=== PATIENT | female | born 1995 | race Caucasian/White ===

== ENCOUNTER 2017-09-25 08:15 | Emergency (ER) | payer MEDICAID ==
[~2017-09-25] VITALS: Ht 170.2 cm; Wt 68.0 kg
[2017-09-25] MEDS ORDERED: KETOROLAC 30 MG/1 ML ONE (11:08)
[2017-09-25] MEDS: KETOROLAC 30 MG/1 ML IM ONE ×2 (11:20→11:35)
[2017-09-25 11:40] VITALS: BP 122/69
== END 2017-09-25 11:43 | disposition home or self-care (01) ==
LOC: ED 10:26
DX: J98.01 Acute bronchospasm (principal); M94.0 Chondrocostal junction syndrome [Tietze]; F17.210 Nicotine dependence, cigarettes, uncomplicated
CPT/HCPCS: 71020; 93005; 96372; 99284; J1885

== ENCOUNTER 2020-12-06 11:45 | Emergency (ER) | payer MEDICAID ==
[~2020-12-06] VITALS: Ht 170.2 cm; Wt 63.0 kg
--- NOTE | 2020-12-06 12:21 | NUR ---
pt to rm from lobby
--- NOTE | 2020-12-06 12:34 | NUR ---
BHUPENDRA Chavez at bedside. Pt ambulated to restroom.
[2020-12-06 13:19] LABS: BASOPHILS % (AUTO) 0 % (0-1); EOSINOPHILS % (AUTO) 1 % (1-7); LYMPHOCYTES % (AUTO) 29 % (22-44); MEAN CORPUSCULAR HEMOGLOBIN 32.7 pg (27.0-34.8); MEAN CORPUSCULAR HGB CONC 34.5 g/dL (32.4-35.8); MEAN PLATELET VOLUME 6.5 fL (7.4-10.4); MONOCYTES % (AUTO) 6 % (2-9); NEUTROPHILS % (AUTO) 64 % (42-75); PLATELET COUNT 306 x10^3/uL (130-400); RED BLOOD COUNT 4.35 x10^6/uL (3.82-5.3); RED CELL DISTRIBUTION WIDTH 13.3 % (9.6-15.2)
[2020-12-06 13:22] LABS: MICROSCOPIC INDICATED
[2020-12-06 13:26] LABS: MD NO
--- NOTE | 2020-12-06 13:30 | NUR ---
Pt to US
[2020-12-06 14:09] VITALS: BP 127/78
--- NOTE | 2020-12-06 14:13 | NUR ---
PT resting in bed, call light in reach.
--- NOTE | 2020-12-06 14:29 | NUR ---
ERMD at bedside to POC
--- NOTE | 2020-12-06 15:05 | NUR ---
Pt discharged home with significant other. Discharge instructions reviewed and signed.
== END 2020-12-06 15:17 | disposition home or self-care (01) ==
LOC: ED 13:23
DX: O20.0 Threatened abortion (principal); R10.9 Unspecified abdominal pain; O99.331 Smoking (tobacco) complicating pregnancy, first trimester; F17.200 Nicotine dependence, unspecified, uncomplicated; Z3A.01 Less than 8 weeks gestation of pregnancy
CPT/HCPCS: 36415; 76801; 81001; 84702; 85025; 86901; 99284

== ENCOUNTER 2020-12-08 09:03 | Emergency (ER) | payer MEDICAID ==
[~2020-12-08] VITALS: Ht 170.2 cm; Wt 63.8 kg
[2020-12-08 09:07] VITALS: BP 118/89
== END 2020-12-08 11:10 | disposition home or self-care (01) ==
LOC: ED 10:25
DX: O20.0 Threatened abortion (principal); Z3A.01 Less than 8 weeks gestation of pregnancy
CPT/HCPCS: 36415; 84702; 99283

== ENCOUNTER 2020-12-16 18:11 | Emergency (ER) | payer MEDICAID ==
[~2020-12-16] VITALS: Ht 170.2 cm; Wt 63.7 kg
--- NOTE | 2020-12-16 18:51 | NUR ---
REPORT GIVEN TO OG
--- NOTE | 2020-12-16 18:59 | NUR ---
report recieved from sean clifton. pt resting in [facility], awaiting ultrasound
--- NOTE | 2020-12-16 20:06 | NUR ---
ultrasound phoned and on the way now
--- NOTE | 2020-12-16 20:45 | NUR ---
ultrasound complete, awaiting results
--- NOTE | 2020-12-16 22:23 | NUR ---
urine sent, awaiting lab draw, no other needs at this time
[2020-12-16 22:29] LABS: MICROSCOPIC INDICATED
[2020-12-16 22:32] LABS: BASOPHILS % (AUTO) 1 % (0-1); EOSINOPHILS % (AUTO) 3 % (1-7); LYMPHOCYTES % (AUTO) 37 % (22-44); MEAN CORPUSCULAR HEMOGLOBIN 32.6 pg (27.0-34.8); MEAN CORPUSCULAR HGB CONC 34.5 g/dL (32.4-35.8); MEAN PLATELET VOLUME 6.6 fL (7.4-10.4); MONOCYTES % (AUTO) 5 % (2-9); NEUTROPHILS % (AUTO) 55 % (42-75); PLATELET COUNT 291 x10^3/uL (130-400); RED BLOOD COUNT 4.12 x10^6/uL (3.82-5.3); RED CELL DISTRIBUTION WIDTH 13.1 % (9.6-15.2)
[2020-12-16 22:39] LABS: MD NO
[2020-12-16 22:45] LABS: ALBUMIN 3.8 g/dL (3.4-5.0); ANION GAP 8 mmol/L (5-15); CALCIUM 8.4 mg/dL (8.5-10.1); CHLORIDE 110 mmol/L (98-107); CREATININE 0.71 mg/dL (0.55-1.02)
[2020-12-16 23:23] VITALS: BP 111/65
[2020-12-16] MEDS ORDERED: BUPIVACAINE/PF 0.5% ONE (23:27)
[2020-12-16] MEDS ORDERED: EPINEPHRINE 1 MG/ML, 1ML ONE (23:28)
[2020-12-16] MEDS ORDERED: BUPIVACAINE/PF-EPI 0.5% 1:200K IM ONE (23:31)
[2020-12-16] MEDS ORDERED: FENTANYL PF 250 MCG/5ML ONE (23:36)
[2020-12-16] MEDS ORDERED: MIDAZOLAM 1 MG/ML, 2ML ONE (23:36)
[2020-12-16] MEDS ORDERED: CEFAZOLIN 1,000 MG ONE (23:59)
[2020-12-16] MEDS ORDERED: NEOSTIGMINE 1 MG/ML, 10ML ONE (23:59)
[2020-12-16] MEDS ORDERED: DEXAMETHASONE 4 MG/ML, 1ML ONE (23:59)
[2020-12-16] MEDS ORDERED: PROPOFOL 10 MG/ML, 20ML ONE (23:59)
[2020-12-16] MEDS ORDERED: ONDANSETRON 2MG/ML, 2ML ONE (23:59)
[2020-12-16] MEDS ORDERED: KETOROLAC 30 MG/1 ML ONE (23:59)
[2020-12-16] MEDS ORDERED: ROCURONIUM 10 MG/ML,10ML ONE (23:59)
[2020-12-16] MEDS ORDERED: GLYCOPYRROLATE 0.2MG/1ML, 5ML ONE (23:59)
[2020-12-16] MEDS ORDERED: SUCCINYLCHOLINE 20 MG/ML, 10ML ONE (23:59)
[2020-12-17] MEDS ORDERED: PROMETHAZINE 25 MG/ML, 1ML IVPush PRN
[2020-12-17] MEDS ORDERED: ACETAMINOPHEN 325 MG TABLET PO PRN
[2020-12-17] MEDS ORDERED: MEPERIDINE/PF 25MG/0.5ML IVPush PRN
[2020-12-17] MEDS ORDERED: OXYcodone 5 MG/5 ML ORAL.SOL UDC PO PRN
[2020-12-17] MEDS ORDERED: HALOPERIDOL 5 MG/ML IV PRN
[2020-12-17] MEDS ORDERED: morphine SULFATE 10 MG/ML, 1ML IVPush PRN
[2020-12-17] MEDS ORDERED: HYDROmorphone 1 MG/ML, 1ML INJ IVPush PRN
[2020-12-17] MEDS ORDERED: FENTANYL PF 100 MCG/2ML IV PRN
[2020-12-17] MEDS ORDERED: FENTANYL PF 100 MCG/2ML ONE (00:30)
[2020-12-17] MEDS ORDERED: MEPERIDINE/PF 25MG/ML,1ML ONE (00:57)
[2020-12-17] MEDS ORDERED: OXYC-293 PO (01:02)
[2020-12-17] MEDS ORDERED: IBUPROFEN 600 MG TABLET PO PRN (03:30)
[2020-12-17] MEDS ORDERED: LACTATED RINGERS 1,000 ML IV SCH (03:30)
[2020-12-17] MEDS ORDERED: HYDROmorphone 2 MG/ML, 1ML IV PRN (03:30)
[2020-12-17] MEDS ORDERED: OXYcodone/APAP 5/325MG TABLET PO PRN (03:30)
== END 2020-12-17 02:08 | disposition other institution (70) ==
LOC: ED 19:25
DX: O00.101 Right tubal pregnancy without intrauterine pregnancy (principal); Z20.822 Contact with and (suspected) exposure to COVID-19
CPT/HCPCS: 36415; 58661; 76801; 80048; 81001; 82040; 84702; 85025; 86850; 86900; 87635; 88305; 96374; 99285; J0171; J0330; J0690; J1100; J1885; J2175; J2250; J2405; J2704; J2710; J3010; S0020